=== PATIENT | male | born 1965 | race Caucasian/White ===

== ENCOUNTER 2016-11-25 10:17 | Emergency (ER) | payer OTHER ==
[2016-11-25] MEDS ORDERED: OPTIRAY 350 100 ML VIAL HMH IV ONE (10:18)
[2016-11-25] MEDS ORDERED: NEB-ALBUTEROL 2.5 MG/3 ML INH ONE (10:50)
== END 2016-11-25 13:56 | disposition home or self-care (01) ==
LOC: ER 10:17
DX: J44.0 Chronic obstructive pulmonary disease with (acute) lower respiratory infection (principal); J20.9 Acute bronchitis, unspecified; F17.200 Nicotine dependence, unspecified, uncomplicated
CPT/HCPCS: 36415; 71020; 71260; 80053; 85025; 87804; 94640